=== PATIENT | male | born 1955 | race Caucasian/White ===

== ENCOUNTER 2019-02-11 21:52 | Inpatient (IN) | payer MEDICARE ==
--- NOTE | 2019-02-11 22:19 | ED ---
General Adult HPI - General Chief complaint: Recheck/Abnormal Lab/Rx Stated complaint: Abnormal Labs Time Seen by Provider: 02/11/19 22:04 Source: patient, family Mode of arrival: wheelchair Limitations: no limitations - History of Present Illness Initial comments: Dictation was produced using [employer] dictation software. please excuse any grammatical, word or spelling errors. Chief Complaint: 63-year-old male with past medical history of chronic pain, sciatica, diabetes and hypertension presents with abnormal outpatient lab. History of Present Illness: Patient is 63-year-old male. He has been having 4 days of bright red blood per rectum. Patient had labs drawn he was told that his hemoglobin is 5.9 was drawn earlier today. Patient's feeling slightly dizzy. He feels pale he denies any pain complaints at this time. Patient states he's been having 2-3 episodes per day of bright red blood per rectum. Patient had a history of GI bleed in the past. At age 48 had a screening colonoscopy that identified a couple polyps that were intervened on. Several months ago had episode of bright red blood per rectum or per lasted only one day. The ROS documented in this emergency department record has been reviewed and confirmed by me. Those systems with pertinent positive or negative responses have been documented in the HPI. All other systems are other negative and/or noncontributory. PHYSICAL EXAM: General Impression: Alert and oriented x3, not in acute distress HEENT: Normocephalic atraumatic, extra-ocular movements intact, pupils equal and reactive to light bilaterally, mucous membranes moist. Cardiovascular: Heart regular rate and rhythm, S1&S2 audible, no murmurs, rubs or gallops Chest: Lungs clear to auscultation bilaterally, no rhonchi, no wheeze, no rales Abdomen: Bowel sounds present, abdomen soft, non-tender, non-distended, no organomegaly Musculoskeletal: Pulses present and equal in all extremities, no peripheral edema Motor: no focal deficits noted Neurological: CN II-XII grossly intact, no focal motor or sensory deficits noted Skin: Intact with no visualized rashes Psych: Normal affect and mood Rectal exam shows 2 anal polyps in the 4 and 7 o'clock position. Digital rectal exam did not identify any palpable masses. ED course: 63-year-old male presents with abnormal hemoglobin measured at 5.9. It's been having symptoms of bright red blood per rectum for the last 3-4 days. Vital signs upon arrival are within acceptable limits. She denies taking any anticoagulation medications. Laboratory evaluation obtained. Mild leukocytosis of 13.0 likely secondary to stress. Hemoglobin is 5.5, hematocrit 17.5. Platelets are within acceptable limits. Cardiac panel unremarkable. Metabolic panel is negative. Stool occult blood is positive. For possibility of upper GI bleed. Patient given transfusion of blood. Patient be admitted to inpatient for further medical monitoring and GI consultation. EKG interpretation: Ventricular rate 94, normal sinus rhythm,. Interval 146, QS 92, QTC 420. No CT prolongation, no QTC prolongation, no ST or T-wave changes noted. Overall, this EKG is unremarkable - Related Data Home Medications Medication Instructions Recorded Confirmed Acetaminophen Tab [Tylenol Tab] 1,000 mg PO DAILY 02/11/19 02/11/19 Allopurinol [Zyloprim] 300 mg PO DAILY PRN 02/11/19 02/11/19 Atorvastatin [Lipitor] 20 mg PO DAILY 02/11/19 02/11/19 Buprenorphine HCl/Naloxone HCl 0.142 film SL DAILY 02/11/19 02/11/19 [Suboxone 2 mg-0.5 mg Sl Film] Calcium Carbonate [Calcium] 600 mg PO DAILY 02/11/19 02/11/19 Colchicine 0.6 mg PO DIRECTED PRN 02/11/19 02/11/19 Famotidine [Pepcid] 20 mg PO DAILY 02/11/19 02/11/19 Ferrous Sulfate [Feosol] 325 mg PO DAILY 02/11/19 02/11/19 Gabapentin [Neurontin] 300 mg PO BID 02/11/19 02/11/19 Meloxicam [Mobic] 15 mg PO HS 02/11/19 02/11/19 Milk Thistle 250mg 250 mg PO AC-TID 02/11/19 02/11/19 Potassium 99 mg PO DAILY 02/11/19 02/11/19 diphenhydrAMINE HCL [Benadryl] 25 mg PO HS 02/11/19 02/11/19 Allergies Allergy/AdvReac Type Severity Reaction Status Date / Time No Known Allergies Allergy Verified 02/11/19 22:40 Review of Systems ROS Statement: Those systems with pertinent positive or pertinent negative responses have been documented in the HPI. ROS Other: All systems not noted in ROS Statement are negative. Past Medical History Past Medical History: Diabetes Mellitus, Hypertension Additional Past Medical History / Comment(s): anemia, sciatica, arthritis, back pain History of Any Multi-Drug Resistant Organisms: None Reported Past Surgical History: Appendectomy, Bariatric Surgery, Hernia Repair Past Psychological History: No Psychological Hx Reported Smoking Status: Never smoker Past Drug Use History: Marijuana General Exam Limitations: no limitations Course Vital Signs 02/11/19 21:58 Temperature 99.2 F Pulse Rate 90 Respiratory 20 Rate Blood Pressure 116/63 O2 Sat by Pulse 99 Oximetry Medical Decision Making - Lab Data Result diagrams: 02/11/19 22:17 02/11/19 22:17 Lab Results 02/11/19 02/11/19 02/11/19 Range/Units 22:17 22:17 22:17 WBC 13.0 H (3.8-10.6) k/uL RBC 2.19 L (4.30-5.90) m/uL Hgb 5.5 L* (13.0-17.5) gm/dL Hct 17.5 L* (39.0-53.0) % MCV 80.0 (80.0-100.0) fL MCH 24.9 L (25.0-35.0) pg MCHC 31.2 (31.0-37.0) g/dL RDW 19.3 H (11.5-15.5) % Plt Count 433 (150-450) k/uL Hypochromasia Slight Anisocytosis Slight Microcytosis Slight PT (9.0-12.0) sec INR (<1.2) Sodium 133 L (137-145) mmol/L Potassium 4.8 (3.5-5.1) mmol/L Chloride 102 (98-107) mmol/L Carbon Dioxide 24 (22-30) mmol/L Anion Gap 7 mmol/L BUN 17 (9-20) mg/dL Creatinine 0.90 (0.66-1.25) mg/dL Est GFR (CKD-EPI)AfAm >90 (>60 ml/min/1.73 sqM) Est GFR (CKD-EPI)NonAf 89 (>60 ml/min/1.73 sqM) Glucose 137 H (74-99) mg/dL Calcium 8.9 (8.4-10.2) mg/dL Stool Occult Blood (Negative) Blood Type Recheck CABO Indicated Crossmatch See Detail Spec Expiration Date 02/14/2019 - 231602/11/19 02/11/19 Range/Units 22:17 22:17 WBC (3.8-10.6) k/uL RBC (4.30-5.90) m/uL Hgb (13.0-17.5) gm/dL Hct (39.0-53.0) % MCV (80.0-100.0) fL MCH (25.0-35.0) pg MCHC (31.0-37.0) g/dL RDW (11.5-15.5) % Plt Count (150-450) k/uL Hypochromasia Anisocytosis Microcytosis PT 10.5 (9.0-12.0) sec INR 1.0 (<1.2) Sodium (137-145) mmol/L Potassium (3.5-5.1) mmol/L Chloride (98-107) mmol/L Carbon Dioxide (22-30) mmol/L Anion Gap mmol/L BUN (9-20) mg/dL Creatinine (0.66-1.25) mg/dL Est GFR (CKD-EPI)AfAm (>60 ml/min/1.73 sqM) Est GFR (CKD-EPI)NonAf (>60 ml/min/1.73 sqM) Glucose (74-99) mg/dL Calcium (8.4-10.2) mg/dL Stool Occult Blood Positive (Negative) Blood Type Recheck Crossmatch Spec Expiration Date Disposition Clinical Impression: Blood loss anemia, GI bleed Disposition: ADMITTED IP TO THIS [facility] Condition: Fair Referrals: Trevon Brower DO [Primary Care Provider] - 1-2 days Decision Time: 23:00
[2019-02-11 22:39] LABS: Anisocytosis Slight; Hypochromasia Slight; MCH 24.9 pg (25.0-35.0); MCHC 31.2 g/dL (31.0-37.0); Mean Platelet Volume 7.7; Microcytosis Slight; Platelet Count 433 k/uL (150-450); RBC 2.19 m/uL (4.30-5.90); RDW 19.3 % (11.5-15.5)
[2019-02-11 22:43] LABS: Prothrombin Time 10.5 sec (9.0-12.0)
[2019-02-11 22:46] LABS: African American GFR (CKD) >90 (>60 ml/min/1.73 sqM); Anion Gap 7 mmol/L; Blood Urea Nitrogen 17 mg/dL (9-20); Calcium 8.9 mg/dL (8.4-10.2); Carbon Dioxide 24 mmol/L (22-30); Chloride 102 mmol/L (98-107); Glucose 137 mg/dL (74-99); HCT 17.5 % (39.0-53.0); HGB 5.5 gm/dL (13.0-17.5); Potassium 4.8 mmol/L (3.5-5.1); Sodium 133 mmol/L (137-145)
[2019-02-11] MEDS ORDERED: PANTOPRAZOLE 40 MG/10 ML VIAL IVP ONE (22:59)
[2019-02-11] MEDS ORDERED: ACETAMINOPHEN TAB 325 MG TAB PO PRN (23:00)
[2019-02-11] MEDS ORDERED: NALOXONE 0.4 MG/ML 1 ML VIAL IV PRN (23:00)
[2019-02-11 23:23] LABS: Lymphocytes # (M) 0.52 k/uL (1.0-4.8); Neutrophils # (M) 12.48 k/uL (1.3-7.7); Neutrophils % (M) 96 %; Nucleated Red Blood Cells 0 /100 WBC (0-0); Polychromasia Present; Total Cells Counted 100
[2019-02-12] MEDS: SODIUM CHLORIDE 0.9% 1,000 ML IV SCH ×3 (00:28→21:55)
[2019-02-12 00:37] VITALS: BMI 23.7
[2019-02-12 06:28] LABS: Anisocytosis Slight; Basophils % (A) 0 %; Eosinophils % (A) 0 %; Hypochromasia Moderate; Lymphocytes # (A) 0.7 k/uL (1.0-4.8); Lymphocytes % (A) 9 %; MCH 26.2 pg (25.0-35.0); MCHC 31.4 g/dL (31.0-37.0); MCV 83.5 fL (80.0-100.0); Monocytes # (A) 0.5 k/uL (0-1.0); Monocytes % (A) 5 %; Neutrophils # (A) 7.3 k/uL (1.3-7.7); Neutrophils % (A) 85 %; Platelet Count 311 k/uL (150-450); Poikilocytosis Slight; RBC 2.35 m/uL (4.30-5.90); RDW 18.1 % (11.5-15.5); WBC 8.6 k/uL (3.8-10.6)
[2019-02-12 06:29] LABS: HCT 19.6 % (39.0-53.0); HGB 6.2 gm/dL (13.0-17.5)
[2019-02-12] MEDS ORDERED: LORazepam 2 MG/ML INJ IV PRN ×2 (07:01)
[2019-02-12] MEDS ORDERED: BUPRENORPHINE HCL SL SCH (09:00)
[2019-02-12] MEDS ORDERED: NALOXONE HCL SL SCH (09:00)
[2019-02-12] MEDS ORDERED: [UNRECOGNIZED DRUG - OTHER] SL SCH (09:00)
[2019-02-12] MEDS ORDERED: ALLOPURINOL 300 MG TAB PO PRN (09:13)
[2019-02-12] MEDS: ACETAMINOPHEN TAB 500 MG TAB PO SCH (09:38)
[2019-02-12] MEDS: GABAPENTIN 300 MG CAP PO SCH ×2 (09:38→21:54)
[2019-02-12] MEDS: FAMOTIDINE 20 MG TAB PO SCH (09:38)
[2019-02-12] MEDS: ATORVASTATIN 20 MG TAB PO SCH (09:38)
[2019-02-12] MEDS ORDERED: SUBOXONE SUBLINGUAL SCH (13:00)
[2019-02-12] MEDS ORDERED: BISACODYL 5 MG TABLET.DR PO STA (14:10)
--- NOTE | 2019-02-12 15:10 | P.CONS ---
History of Present Illness - Reason for Consult Consult date: 02/12/19 GI bleed Requesting physician: Lorrie Reddy - Chief Complaint rectal bleeding - History of Present Illness 63-year-old gentleman with a past medical history of vagotomy secondary to "hyperacid" at 17 years of age, daily beer consumption, diabetes mellitus, hypertension admitted with painless hematochezia 1 week. Patient noticed last passage of bright red blood per rectum without abdominal pain fever chills. Subsided for a few days but returned over the weekend but not as severe. Last July he had a similar episode of this type of bleeding it only lasted for a day l and did not seek medical evaluation. He developed increased weakness fatigue. Admission hemoglobin 5.5. MCV 80. Platelet 433. INR 1.0. BUN 17. Moderate hypochromia. Creatinine 0.9. FOBT positive. Received 2 units of blood present hemoglobin is 6.2. No history of peptic ulcer disease. Last colonoscopy about 10 years ago. Polyps removed. No recent EGD. Home medications include meloxicam daily as well as occasional Pepcid. No changes in appetite. No weight loss. Review of Systems Constitutional: Denies fever, chills, sweats, weight gain, or loss. Weakness fatigue. HEENT: Negative for migraines, blurred vision or loss, earaches, drainage, tinnitus, oral mucosal lesions, dysphagia, or odynophagia. Cardiac: Negative for chest pain, arrhythmias, or palpitation. Respiratory: Negative for shortness of breath, hemoptysis, cough, or sputum production. Gastrointestinal: See HPI for pertinent findings. Genitourinary: Negative for hematuria, urgency, frequency, polyuria, dysuria, or penile discharge. Musculoskeletal: Negative for muscle aches, swelling, arthritis, and arthralgias. Neurologic: Negative for stroke or TIA. Endocrine: Negative for thyroid problems. Skin: Negative for rash or itching. Psychiatric: Negative history for depression and anxiety Past Medical History Past Medical History: Diabetes Mellitus, Hypertension Additional Past Medical History / Comment(s): anemia, sciatica, arthritis, back pain History of Any Multi-Drug Resistant Organisms: None Reported Past Surgical History: Appendectomy, Bariatric Surgery, Hernia Repair Past Psychological History: No Psychological Hx Reported Smoking Status: Never smoker Past Drug Use History: Marijuana Medications and Allergies Home Medications Medication Instructions Recorded Confirmed Type Acetaminophen Tab [Tylenol Tab] 1,000 mg PO DAILY 02/11/19 02/11/19 History Allopurinol [Zyloprim] 300 mg PO DAILY PRN 02/11/19 02/11/19 History Atorvastatin [Lipitor] 20 mg PO DAILY 02/11/19 02/11/19 History Buprenorphine HCl/Naloxone HCl 0.142 film SL DAILY 02/11/19 02/11/19 History [Suboxone 2 mg-0.5 mg Sl Film] Calcium Carbonate [Calcium] 600 mg PO DAILY 02/11/19 02/11/19 History Colchicine 0.6 mg PO DIRECTED PRN 02/11/19 02/11/19 History Famotidine [Pepcid] 20 mg PO DAILY 02/11/19 02/11/19 History Ferrous Sulfate [Feosol] 325 mg PO DAILY 02/11/19 02/11/19 History Gabapentin [Neurontin] 300 mg PO BID 02/11/19 02/11/19 History Meloxicam [Mobic] 15 mg PO HS 02/11/19 02/11/19 History Milk Thistle 250mg 250 mg PO AC-TID 02/11/19 02/11/19 History Potassium 99 mg PO DAILY 02/11/19 02/11/19 History diphenhydrAMINE HCL [Benadryl] 25 mg PO HS 02/11/19 02/11/19 History Allergies Allergy/AdvReac Type Severity Reaction Status Date / Time No Known Allergies Allergy Verified 02/11/19 22:40 Physical Exam Vitals: Vital Signs Temp Pulse Pulse Resp BP BP Pulse Ox 02/12/19 14:09 98.5 F 69 16 118/65 100 02/12/19 10:37 98.7 F 64 16 122/65 100 02/12/19 10:07 98.6 F 72 16 111/64 98 02/12/19 09:57 98.4 F 63 18 123/68 02/12/19 08:00 98.4 F 63 16 123/68 100 02/12/19 04:00 98.5 F 79 16 113/68 98 02/12/19 03:56 78 18 02/12/19 02:01 99.1 F 72 18 119/61 100 02/12/19 00:28 98.8 F 83 18 111/58 98 02/12/19 00:13 98.8 F 18 L 18 111/58 98 02/12/19 00:08 98.9 F 83 19 114/65 98 02/11/19 23:57 99.2 F 79 18 121/61 96 02/11/19 23:42 98.7 F 91 18 112/61 98 02/11/19 23:33 99.2 F 87 18 121/67 98 02/11/19 23:03 98.3 F 87 18 112/58 99 02/11/19 21:58 99.2 F 90 20 116/63 99 Intake and Output 02/12/19 02/12/19 02/12/19 06:59 14:59 22:59 Intake Total 910 670 Balance 910 670 Intake: Intake, IV Titration 600 Amount Sodium Chloride 0.9% 1, 600 000 ml @ 100 mls/hr IV . Q10H [facility] Rx#:[id number] Oral 360 Blood Product 310 310 Rc As-3 Unit 310 [id number] Rc As-3 Unit 310 [id number] Other: # Voids 1 1 Weight 74.3 kg General appearance: The patient is alert, oriented, in no acute distress. HET: Head is normocephalic and atraumatic. Pupils are equal and reactive. Oropharynx is clear without lesions. Neck: Supple without lymphadenopathy. Trachea midline. Heart: S1 S2. Regular rate and rhythm. Lungs: No crackles or wheezes are heard. Abdomen: Soft, nontender, nondistended with bowel sounds. No peritoneal signs. No palpable organomegaly or masses. Extremities: Normal skin color and turgor. No cyanosis, rash, ulceration, clubbing, or edema. Radial and pedal pulses are 2/4 bilaterally. Neurological: No focal deficits. Strength and sensation are grossly intact. Results CBC & Chem 7: 02/12/19 06:06 02/11/19 22:17 Labs: Abnormal Lab Results - Last 24 Hours (Table) 02/11/19 02/11/19 02/11/19 Range/Units 22:17 22:17 22:17 WBC 13.0 H (3.8-10.6) k/uL RBC 2.19 L (4.30-5.90) m/uL Hgb 5.5 L* (13.0-17.5) gm/dL Hct 17.5 L* (39.0-53.0) % MCH 24.9 L (25.0-35.0) pg RDW 19.3 H (11.5-15.5) % Neutrophils # (Manual) 12.48 H (1.3-7.7) k/uL Lymphocytes # (1.0-4.8) k/uL Lymphocytes # (Manual) 0.52 L (1.0-4.8) k/uL Sodium 133 L (137-145) mmol/L Glucose 137 H (74-99) mg/dL Crossmatch See Detail 02/12/19 Range/Units 06:06 WBC (3.8-10.6) k/uL RBC 2.35 L (4.30-5.90) m/uL Hgb 6.2 L* (13.0-17.5) gm/dL Hct 19.6 L* (39.0-53.0) % MCH (25.0-35.0) pg RDW 18.1 H (11.5-15.5) % Neutrophils # (Manual) (1.3-7.7) k/uL Lymphocytes # 0.7 L (1.0-4.8) k/uL Lymphocytes # (Manual) (1.0-4.8) k/uL Sodium (137-145) mmol/L Glucose (74-99) mg/dL Crossmatch Assessment and Plan (1) Hematochezia Narrative/Plan: 63-year-old gentleman with a history of vagotomy 45 years ago daily alcohol consumption presents with acute symptomatic acute blood loss normocytic hypochromic anemia secondary to painless hematochezia 1 week. Possible acute colonic diverticular bleed, possible upper GI possible small bowel source. Current Visit: Yes Status: Acute Code(s): K92.1 - MELENA SNOMED Code(s): 138924128 (2) GI bleed Current Visit: Yes Status: Acute Code(s): K92.2 - GASTROINTESTINAL HEMORRHAGE, UNSPECIFIED SNOMED Code(s): 24499663 (3) Acute blood loss anemia Current Visit: Yes Status: Acute Code(s): D62 - ACUTE POSTHEMORRHAGIC ANEMIA SNOMED Code(s): 106464694 (4) ETOH abuse Current Visit: Yes Status: Chronic Code(s): F10.10 - ALCOHOL ABUSE, UNCOMPLI CATED SNOMED Code(s): 90504832 Plan: 1. CBC monitoring. Blood transfusions as indicated. Iron indices pending. Protonix 40 mg IV daily. Clear liquids. We'll proceed with EGD colonoscopy evaluation tomorrow afternoon. Nothing by mouth after clear liquid breakfast. The rerecording mixer has discussed the risks, benefits and alternative therapies for the above-mentioned procedure and for both sedation/analgesia as well as necessary blood product administration, if indicated, as they pertain to this patient. The patient has indicated understanding and acceptance of the risks and procedures discussed. Thank you for this kind referral and the opportunity to participate in the care of your patient. This consultation was discussed with Dr. Adkins. The impression and plan of care have been directed as dictated.
[2019-02-12] MEDS ORDERED: PEG 3350-NA SULF,BICARB,CL/KCL 4,000 ML BOTTLE PO ONE (16:00)
[2019-02-12] MEDS: THIAMINE 100 MG TAB PO SCH (17:41)
[2019-02-12 20:36] LABS: Glucose,Whole Blood 115 mg/dL (75-99)
[2019-02-12] MEDS ORDERED: NON-FORMULARY DRUG (Meloxicam [Mobic] 15 MG) PO SCH (21:00)
[2019-02-12] MEDS: LORazepam 2 MG/ML INJ IV PRN (22:04)
--- NOTE | 2019-02-12 22:22 | P.HPIM ---
History of Present Illness H&P Date: 02/12/19 Chief Complaint: Bright red blood per rectum and dark stools History of presenting complaint: This is a pleasant 63-year-old patient of Dr. Brower. Chronic stable medical conditions include diabetes, hypertension, [place], arthritis. Also hyperlipidemia and chronic gout. Patient started off with bright red blood per rectum about a week ago. Although weak and his slow down. And a started to happen again. Patient started feeling dizzy tired and lightheaded and decided to come in. No abdominal pain. Patient does take NSAIDs for his arthritis. Patient was made nothing by mouth for the same. No chest pain. Family the bedside including the . Patient has recently moved up here from [place]. Review of systems: GEN.: Weak and tired EYES: None HEENT: None NECK: None RESPIRATORY: None CARDIOVASCULAR: None GASTROINTESTINAL: As above GENITOURINARY: None MUSCULOSKELETAL: Pain in different joints LYMPHATICS: None HEMATOLOGICAL: None PSYCHIATRY: None NEUROLOGICAL: None Past medical history: Diabetes mellitus type 2, hypertension, [place], arthritis, hyperlipidemia, chronic gout Social history: Does not smoke. Does 1-2 puffs of marijuana a day. 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 Physical examination: VITAL SIGNS: 99.2, 90, 20, 106/63, 99% room air GENERAL: thin, sitting up, comfortable]. EYES: Pupils equal. Conjunctiva palel. HEENT: External appearance of nose and ears normal, oral cavity grossly normal. NECK: JVD not raised; masses not palpable. HEART: First and second heart sounds are normal; no edema. LUNGS: Respiratory rate normal; clear to auscultation. ABDOMEN: Soft, nontender, liver spleen not palpable, no masses palpable. LYMPHATICS: No lymph nodes palpable in the axilla and neck. PSYCH: Alert and oriented x3; mood and affect normal. NEUROLOGICAL: Cranial nerves grossly intact; no facial asymmetry, power and sensation grossly intact. Investigations: White count 13, hemoglobin 5.5, repeat 6.2 this morning platelets 433 potassium 4.8. And 17 creatinine 0.9 Assessment: -Acute GI bleed in a patient was noted put bright red blood and dark stools and patient does take Mobic that is an NSAID. Likely upper GI bleed cannot entirely rule out a lower GI bleed -Acute severe blood loss anemia from above symptomatic requiring blood transfusion -Diabetes mellitus type 2 on oral hypoglycemic -Essential hypertension -Primary osteoarthritis -Hyperlipidemia -Chronic gout Plan: Care was discussed with patient and and family the bedside. Questions were answered. Patient's was made nothing by mouth then clear liquids awaiting input from GI with a view to both upper and lower endoscopy. Close eye be kept on the hemoglobin. Past Medical History Past Medical History: Diabetes Mellitus, Hypertension Additional Past Medical History / Comment(s): anemia, sciatica, arthritis, back pain History of Any Multi-Drug Resistant Organisms: None Reported Past Surgical History: Appendectomy, Bariatric Surgery, Hernia Repair Past Psychological History: No Psychological Hx Reported Smoking Status: Never smoker Past Drug Use History: Marijuana Medications and Allergies Home Medications Medication Instructions Recorded Confirmed Type Acetaminophen Tab [Tylenol Tab] 1,000 mg PO DAILY 02/11/19 02/11/19 History Allopurinol [Zyloprim] 300 mg PO DAILY PRN 02/11/19 02/11/19 History Atorvastatin [Lipitor] 20 mg PO DAILY 02/11/19 02/11/19 History Buprenorphine HCl/Naloxone HCl 0.142 film SL DAILY 02/11/19 02/11/19 History [Suboxone 2 mg-0.5 mg Sl Film] Calcium Carbonate [Calcium] 600 mg PO DAILY 02/11/19 02/11/19 History Colchicine 0.6 mg PO DIRECTED PRN 02/11/19 02/11/19 History Famotidine [Pepcid] 20 mg PO DAILY 02/11/19 02/11/19 History Ferrous Sulfate [Feosol] 325 mg PO DAILY 02/11/19 02/11/19 History Gabapentin [Neurontin] 300 mg PO BID 02/11/19 02/11/19 History Meloxicam [Mobic] 15 mg PO HS 02/11/19 02/11/19 History Milk Thistle 250mg 250 mg PO AC-TID 02/11/19 02/11/19 History Potassium 99 mg PO DAILY 02/11/19 02/11/19 History diphenhydrAMINE HCL [Benadryl] 25 mg PO HS 02/11/19 02/11/19 History Allergies Allergy/AdvReac Type Severity Reaction Status Date / Time No Known Allergies Allergy Verified 02/11/19 22:40 Physical Exam Vitals: Vital Signs Temp Pulse Pulse Resp BP BP Pulse Ox 02/12/19 16:00 67 02/12/19 15:20 98.7 F 67 16 117/65 99 02/12/19 14:09 98.5 F 69 16 118/65 100 02/12/19 10:37 98.7 F 64 16 122/65 100 02/12/19 10:07 98.6 F 72 16 111/64 98 02/12/19 09:57 98.4 F 63 18 123/68 02/12/19 08:00 98.4 F 63 16 123/68 100 02/12/19 04:00 98.5 F 79 16 113/68 98 02/12/19 03:56 78 18 02/12/19 02:01 99.1 F 72 18 119/61 100 02/12/19 00:28 98.8 F 83 18 111/58 98 02/12/19 00:13 98.8 F 18 L 18 111/58 98 02/12/19 00:08 98.9 F 83 19 114/65 98 02/11/19 23:57 99.2 F 79 18 121/61 96 02/11/19 23:42 98.7 F 91 18 112/61 98 02/11/19 23:33 99.2 F 87 18 121/67 98 02/11/19 23:03 98.3 F 87 18 112/58 99 Intake and Output 02/12/19 02/12/19 02/12/19 06:59 14:59 22:59 Intake Total 910 670 Balance 910 670 Intake: Intake, IV Titration 600 Amount Sodium Chloride 0.9% 1, 600 000 ml @ 100 mls/hr IV . Q10H [facility] Rx#:[id number] Oral 360 Blood Product 310 310 Rc As-3 Unit 310 [id number] Rc As-3 Unit 310 [id number] Other: # Voids 1 1 1 Weight 74.3 kg Results CBC & Chem 7: 02/12/19 06:06 02/11/19 22:17 Labs: Abnormal Lab Results - Last 24 Hours (Table) 02/11/19 02/11/19 02/11/19 Range/Units 22:17 22:17 22:17 WBC 13.0 H (3.8-10.6) k/uL RBC 2.19 L (4.30-5.90) m/uL Hgb 5.5 L* (13.0-17.5) gm/dL Hct 17.5 L* (39.0-53.0) % MCH 24.9 L (25.0-35.0) pg RDW 19.3 H (11.5-15.5) % Neutrophils # (Manual) 12.48 H (1.3-7.7) k/uL Lymphocytes # (1.0-4.8) k/uL Lymphocytes # (Manual) 0.52 L (1.0-4.8) k/uL Sodium 133 L (137-145) mmol/L Glucose 137 H (74-99) mg/dL POC Glucose (mg/dL) (75-99) mg/dL Crossmatch See Detail 02/12/19 02/12/19 Range/Units 06:06 20:33 WBC (3.8-10.6) k/uL RBC 2.35 L (4.30-5.90) m/uL Hgb 6.2 L* (13.0-17.5) gm/dL Hct 19.6 L* (39.0-53.0) % MCH (25.0-35.0) pg RDW 18.1 H (11.5-15.5) % Neutrophils # (Manual) (1.3-7.7) k/uL Lymphocytes # 0.7 L (1.0-4.8) k/uL Lymphocytes # (Manual) (1.0-4.8) k/uL Sodium (137-145) mmol/L Glucose (74-99) mg/dL POC Glucose (mg/dL) 115 H (75-99) mg/dL Crossmatch Thrombosis Risk Factor Assmnt - Choose All That Apply Each Factor Represents 1 point: Varicose veins Other Risk Factors: Yes Each Risk Factor Represents 2 Points: Age 61-74 years Other congenital or acquired thrombophilia - If yes, enter type in comment: No Thrombosis Risk Factor Assessment Total Risk Factor Score: 3 Thrombosis Risk Factor Assessment Level: Moderate Risk
[2019-02-13 05:05] LABS: Iron Saturation 1.56 (15.00-50.00)
[2019-02-13 05:35] LABS: Glucose,Whole Blood 110 mg/dL (75-99)
[2019-02-13 08:04] LABS: Anisocytosis Slight; Basophils % (A) 0 %; Eosinophils # (A) 0.1 k/uL (0-0.7); Eosinophils % (A) 1 %; HCT 23.9 % (39.0-53.0); HGB 7.5 gm/dL (13.0-17.5); Hypochromasia Moderate; Lymphocytes # (A) 2.3 k/uL (1.0-4.8); Lymphocytes % (A) 17 %; MCH 26.4 pg (25.0-35.0); MCHC 31.3 g/dL (31.0-37.0); MCV 84.3 fL (80.0-100.0); Mean Platelet Volume 7.3; Monocytes # (A) 0.7 k/uL (0-1.0); Monocytes % (A) 6 %; Neutrophils # (A) 9.9 k/uL (1.3-7.7); Neutrophils % (A) 74 %; Platelet Count 426 k/uL (150-450); Poikilocytosis Slight; RBC 2.83 m/uL (4.30-5.90); WBC 13.3 k/uL (3.8-10.6)
[2019-02-13] MEDS: SODIUM CHLORIDE 0.9% 1,000 ML IV SCH ×2 (08:42→17:08)
[2019-02-13] MEDS ORDERED: PANTOPRAZOLE 40 MG/10 ML VIAL IVP SCH (09:00)
[2019-02-13] MEDS: ATORVASTATIN 20 MG TAB PO SCH (09:17)
[2019-02-13] MEDS: GABAPENTIN 300 MG CAP PO SCH ×2 (09:17→20:16)
[2019-02-13] MEDS: FAMOTIDINE 20 MG TAB PO SCH (09:17)
[2019-02-13] MEDS: ACETAMINOPHEN TAB 500 MG TAB PO SCH (09:18)
[2019-02-13] MEDS: THIAMINE 100 MG TAB PO SCH ×2 (09:19→17:09)
[2019-02-13] MEDS: SUBOXONE SUBLINGUAL SCH (09:57)
[2019-02-13] MEDS ORDERED: LIDOCAINE 1% INJ 10MG/ML (20 ML MDV) ONE (13:41)
[2019-02-13] MEDS ORDERED: PROPOFOL 10 MG/ML 20 ML VIAL IV ONE (13:41)
[2019-02-13] MEDS ORDERED: IV FLUID CONTINUATION 1,000 ML IV ONE ×2 (13:50)
[2019-02-13] MEDS ORDERED: SODIUM CHLORIDE 0.9% 500 ML 500 ML IV ONE ×2 (14:02→14:46)
--- NOTE | 2019-02-13 15:05 | P.PCN ---
Date of Procedure: 02/13/19 Description of Procedure: Brief history: 63-year-old gentleman with a past medical history of vagotomy secondary to "hyperacid" at 17 years of age, daily beer consumption, diabetes mellitus, hypertension admitted with painless hematochezia 1 week. Patient noticed last passage of bright red blood per rectum without abdominal pain fever chills. Subsided for a few days but returned over the weekend but not as severe. Last July he had a similar episode of this type of bleeding it only lasted for a day l and did not seek medical evaluation. He developed increased weakness fatigue. Admission hemoglobin 5.5. MCV 80. Platelet 433. INR 1.0. BUN 17. Moderate hypochromia. Creatinine 0.9. FOBT positive. Received 2 units of blood present hemoglobin is 6.2. No history of peptic ulcer disease. Last colonoscopy about 10 years ago. Polyps removed. No recent EGD. Home medications include meloxicam daily as well as occasional Pepcid. Procedure performed: Esophagogastroduodenoscopy with biopsy Colonoscopy with polypectomy Estimated blood loss: Minimal. Preoperative diagnosis: Anemia of acute blood loss, hematochezia Anesthesia: MAC Procedure: After informed consent was obtained from the patient was brought into the endoscopy unit and IV sedation was administered by anesthesia under continuous monitoring. Initially upper endoscopy was done. The Olympus GF 190 video endoscope was inserted inserted into the mouth and esophagus intubated without any difficulty and was gradually advanced into the stomach and small bowel and carefully examined. The small bowel past the anastomotic site appeared normal with biopsies taken. The scope was then withdrawn into the stomach adequately insufflated with air and upon careful examination the patient stomach revealed anatomy consistent with prior history of vagotomy. At the site of anastomosis there was a superficial nonbleeding ulcer with biopsies of the ulcer taken. Biopsies were also taken of the patient's stomach. The scope was then withdrawn into the esophagus. The GE junction was located at 43 cm to the incisors. It appeared regular with no erythema erosions or ulcerations. Rest of the esophagus appeared normal. Patient tolerated the procedure well. At this time the patient continued to remain sedation. Initial digital rectal examination was normal. Olympus CF 190 video colonoscope was then inserted into the rectum and gradually advanced to the cecum without any difficulty. Careful examination was performed as the scope was gradually being withdrawn. The prep was fair. The cecum, ascending colon, transverse colon, descending colon, sigmoid colon and rectum appeared normal. A diminutive 2 mm sessile polyp was noted in the ascending colon and removed with cold forcep polypectomy. A flat 6 mm polyp in the transverse colon was removed with cold snare polypectomy. P andiverticulosis, with a large amount of small and large mouth diverticula throughout the colon. Large internal hemorrhoids were noted. Retroflexion was performed in the rectum and no lesions were noted. Patient tolerated the procedure well. Impression: 1. Anatomy consistent with previous vagotomy with anastomotic site ulcer noted and biopsied. Small bowel biopsies. Gastric biopsies. 2. Fair prep. Polypectomy of a diminutive ascending polyp with cold forcep and a diminutive transverse polyp with cold snare. Pandiverticulosis. Large internal hemorrhoids. Recommendations: Findings of this examination were discussed with the patient. Okay for diet. Continue to monitor hemoglobin and hematocrit and transfuse as needed. Patient should be discharged on twice daily PPI. Await pathology from biopsies. Recommend repeat colonoscopy in 3 years given fair prep.
[2019-02-13] MEDS: PANTOPRAZOLE 40 MG TABLET PO SCH (17:09)
[2019-02-13] MEDS: LORazepam 2 MG/ML INJ IV PRN (22:24)
--- NOTE | 2019-02-13 22:43 | P.PN ---
Progress Note - Text Progress Note Date: 02/13/19 Chief Complaint: Bright red blood per rectum and dark stools Interval history: This is a pleasant 63-year-old patient of Dr. Brower. Chronic stable medical conditions include diabetes, hypertension, [place], arthritis. Also hyperlipidemia and chronic gout. Patient started off with bright red blood per rectum about a week ago. Although weak and his slow down. And a started to happen again. Patient started feeling dizzy tired and lightheaded and decided to come in. No abdominal pain. Patient does take NSAIDs for his arthritis. Today-patient had no further GI bleed. Did get the bowel preparation. Due to go for endoscopy this afternoon. Does feel tired. Patient status post 2 units up PRBC Review of systems: Was done for constitutional, cardiovascular, GI, pulmonary. relevant finding as above Current medications reviewed and include PPI Physical examination: VITAL SIGNS: 98.6, 65, 16, 133 with 78, 99% room air GENERAL: Sitting at the edge of bed, tired]. EYES: Pupils equal. Conjunctiva palel. HEENT: External appearance of nose and ears normal, oral cavity grossly normal. NECK: JVD not raised; masses not palpable. HEART: First and second heart sounds are normal; no edema. LUNGS: Respiratory rate normal; clear to auscultation. ABDOMEN: Soft, nontender, liver spleen not palpable, no masses palpable. PSYCH: Alert and oriented x3; mood and affect normal. Investigations: White count 13.3, hemoglobin 7.5 Assessment: -Acute GI bleed in a patient was noted put bright red blood and dark stools and patient does take Mobic that is an NSAID. Likely upper GI bleed cannot entirely rule out a lower GI bleed -Acute severe blood loss anemia from above symptomatic requiring blood transfusion -Diabetes mellitus type 2 on oral hypoglycemic -Essential hypertension -Primary osteoarthritis -Hyperlipidemia -Chronic gout Plan: Care was discussed with the patient. Patient nothing by mouth new for endoscopy this afternoon. Continue current medication treatment plan.
[2019-02-14] MEDS: SODIUM CHLORIDE 0.9% 1,000 ML IV SCH ×2 (05:14→09:12)
[2019-02-14] MEDS: THIAMINE 100 MG TAB PO SCH (05:25)
[2019-02-14] MEDS: PANTOPRAZOLE 40 MG TABLET PO SCH (05:25)
[2019-02-14] MEDS: GABAPENTIN 300 MG CAP PO SCH (09:11)
[2019-02-14] MEDS: ATORVASTATIN 20 MG TAB PO SCH (09:12)
[2019-02-14] MEDS: ACETAMINOPHEN TAB 500 MG TAB PO SCH (09:12)
[2019-02-14] MEDS: SUBOXONE SUBLINGUAL SCH (09:12)
[2019-02-14 09:32] VITALS: RESP 18
[2019-02-14 11:38] VITALS: BP 105/69; PULSE 75; TEMP 97.8
--- NOTE | 2019-02-14 23:20 | P.DS ---
Providers Date of admission: 02/11/19 23:01 Expected date of discharge: 02/14/19 Attending physician: Hugo Knott Consults: 02/11/19 23:01 Consult Physician Routine Consulting Provider: Car Adkins Consult Reason/Comments: gi bleed Do you want consulting provider notified?: Yes J procedure done by Dr. Maynard Primary care physician: [facility] Course: -Acute GI bleed secondary to gastric ulcer second to intake of NSAIDs -Acute severe blood loss anemia from above symptomatic requiring blood transfusion -Diabetes mellitus type 2 on oral hypoglycemic -Essential hypertension -Primary osteoarthritis -Hyperlipidemia -Chronic gout Hospital course: Admitted with dark and bloody stool. EGD showed gastric ulcer. Prior vagotomy was done. Patient does take NSAIDs at home. Initial hemoglobin was 5.5. Received 2 units of blood. Hemoglobin today was 7.5. Abdominal pain. Did tolerate her diet. No anemic symptoms anymore. Care was discussed in detail with the patient. Questions were answered. Discussion discharge planning more than 35 minutes On examination: Afebrile, pulse 85, respiration 18, blood pressure 105/69, 98% room air Abdomen soft nontender Lungs fair entry Labs: Hemoglobin 7.5 Disposition: Home Patient Condition at Discharge: Stable Plan - Discharge Summary New Discharge Prescriptions: New Omeprazole [PriLOSEC] 20 mg PO AC-BID #60 cap Continue Gabapentin [Neurontin] 300 mg PO BID Ferrous Sulfate [Iron (65 MG Elemental)] 325 mg PO DAILY Colchicine 0.6 mg PO DIRECTED PRN PRN Reason: GOUT Calcium Carbonate [Calcium] 600 mg PO DAILY Buprenorphine HCl/Naloxone HCl [Suboxone 2 mg-0.5 mg Sl Film] 0.142 film SL DAILY Atorvastatin [Lipitor] 20 mg PO DAILY Allopurinol [Zyloprim] 300 mg PO DAILY PRN PRN Reason: GOUT Acetaminophen Tab [Tylenol] 1,000 mg PO DAILY Discontinued Potassium 99 mg PO DAILY Meloxicam [Mobic] 15 mg PO HS Famotidine [Pepcid] 20 mg PO DAILY diphenhydrAMINE HCL [Benadryl] 25 mg PO HS No Action Milk Thistle 250mg 250 mg PO AC-TID Discharge Medication List Acetaminophen Tab [Tylenol] 1,000 mg PO DAILY 02/11/19 [History] Allopurinol [Zyloprim] 300 mg PO DAILY PRN 02/11/19 [History] Atorvastatin [Lipitor] 20 mg PO DAILY 02/11/19 [History] Buprenorphine HCl/Naloxone HCl [Suboxone 2 mg-0.5 mg Sl Film] 0.142 film SL DAILY 02/11/19 [History] Calcium Carbonate [Calcium] 600 mg PO DAILY 02/11/19 [History] Colchicine 0.6 mg PO DIRECTED PRN 02/11/19 [History] Ferrous Sulfate [Iron (65 MG Elemental)] 325 mg PO DAILY 02/11/19 [History] Gabapentin [Neurontin] 300 mg PO BID 02/11/19 [History] Milk Thistle 250mg 250 mg PO AC-TID 02/11/19 [History] Omeprazole [PriLOSEC] 20 mg PO AC-BID #60 cap 02/14/19 [Rx] Follow up Appointment(s)/Referral(s): Trevon Brower DO [Primary Care Provider] - 1 Week Matias Kam MD [STAFF PHYSICIAN] - 2 Weeks Patient Instructions/Handouts: Peptic Ulcer (DC), Gastrointestinal Bleeding (DC), Colonoscopy (DC), Upper Endoscopy (DC) Discharge Disposition: HOME SELF-CARE
== END 2019-02-14 15:36 | disposition home or self-care (01) | DRG 378 ==
LOC: EC 21:52 → SUPCPDRO 21:52 → 3SCARD 23:01
PROVIDERS: ADMIT Hospitalist; ATTEND Hospitalist
PROC: 30233N1 Transfusion of Nonautologous Red Blood Cells into Peripheral Vein, Percutaneous Approach (ICD-10-PCS; 2019-02-11)
PROC: 0DBL8ZZ Excision of Transverse Colon, Via Natural or Artificial Opening Endoscopic (ICD-10-PCS; 2019-02-13)
PROC: 0DB68ZX Excision of Stomach, Via Natural or Artificial Opening Endoscopic, Diagnostic (ICD-10-PCS; principal; 2019-02-13 08:30)
PROC: 0DB88ZX Excision of Small Intestine, Via Natural or Artificial Opening Endoscopic, Diagnostic (ICD-10-PCS; 2019-02-13 08:30)
PROC: 0DBK8ZZ Excision of Ascending Colon, Via Natural or Artificial Opening Endoscopic (ICD-10-PCS; 2019-02-13 08:30)
DX: K25.4 Chronic or unspecified gastric ulcer with hemorrhage (principal); D62 Acute posthemorrhagic anemia; K63.5 Polyp of colon; T39.395A Adverse effect of other nonsteroidal anti-inflammatory drugs [NSAID], initial encounter; D72.829 Elevated white blood cell count, unspecified; E11.9 Type 2 diabetes mellitus without complications; E78.5 Hyperlipidemia, unspecified; F10.10 Alcohol abuse, uncomplicated; I10 Essential (primary) hypertension; K57.90 Diverticulosis of intestine, part unspecified, without perforation or abscess without bleeding; K62.0 Anal polyp; K64.8 Other hemorrhoids; M19.91 Primary osteoarthritis, unspecified site; M1A.9XX0 Chronic gout, unspecified, without tophus (tophi); G89.29 Other chronic pain; M54.30 Sciatica, unspecified side; Z86.010 Personal history of colon polyps; Z79.899 Other long term (current) drug therapy
CPT/HCPCS: 36415; 43239; 45380; 45385; 80048; 82272; 82728; 83540; 83550; 85025; 85610; 86850; 86900; 86901; 86920; 93005; 96374; 99285